=== PATIENT | male | born 1995 | race American Indian/Alaskan Native ===

== ENCOUNTER 2017-07-30 18:54 | Emergency (ER) | payer SELFPAY ==
[2017-07-30 19:36] VITALS: BP 127/73
== END 2017-07-31 02:30 | disposition left against medical advice (07) ==
LOC: ED 18:54
DX: R21 Rash and other nonspecific skin eruption (principal); Z53.21 Procedure and treatment not carried out due to patient leaving prior to being seen by health care provider

== ENCOUNTER 2020-08-20 23:21 | Emergency (ER) | payer SELFPAY ==
[2020-08-20 23:45] VITALS: BP 95/76
[2020-08-20] MEDS ORDERED: ASPIRIN 325 MG TAB PO ONE (23:50)
== END 2020-08-21 00:23 | disposition left against medical advice (07) ==
LOC: ED 23:21
DX: R07.9 Chest pain, unspecified (principal); Z53.21 Procedure and treatment not carried out due to patient leaving prior to being seen by health care provider
CPT/HCPCS: 93005

== ENCOUNTER 2021-03-02 21:51 | Emergency (ER) | payer SELFPAY ==
[2021-03-02] MEDS ORDERED: IBUPROFEN 800 MG TAB PO ONE (23:49)
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
--- NOTE | 2021-03-03 00:41 | Cat Scan Report ---
CT maxillofacial without contrast INDICATION : r/o mandible fracture; s/p reduction of jaw disloc. TECHNIQUE: Axial imaging performed through the face with reconstructed images also reviewed. All CT scans at this location are performed using CT dose reduction for ALARA by means of automated exposur e control. COMPARISON: None FINDINGS: No acute fracture identified. The sinuses and mastoid air cells are clear. Orbits are norm al. No significant soft tissue abnormality identified. IMPRESSION: No acute abnormality. Signer Name: Yves Lozano MD Signed: 03/03/2021 12:36 AM Workstation Name: [id number]
[2021-03-03 01:08] VITALS: BP 133/78
== END 2021-03-03 01:07 | disposition home or self-care (01) ==
LOC: ED 21:51
DX: S03.01XA Dislocation of jaw, right side, initial encounter (principal); Z98.890 Other specified postprocedural states; Z79.899 Other long term (current) drug therapy; X58.XXXA Exposure to other specified factors, initial encounter; Y93.89 Activity, other specified; Y92.89 Other specified places as the place of occurrence of the external cause; Y99.8 Other external cause status
CPT/HCPCS: 70486